=== PATIENT | male | born 1975 | race Caucasian/White ===

== ENCOUNTER 2017-05-04 10:32 | Inpatient (IN) ==
[2017-05-04 11:42] LABS: Basophils # 0.1 K/mcL (0.0-0.2); Basophils % 0.9 %; Eosinophils # 0.2 K/mcL (0.0-0.6); Eosinophils % 3.1 %; Hematocrit 30.4 % (37.5-50.1); Immature Granulocytes % 5.8 % (0-4); Lymphocytes # 1.1 K/mcL (0.6-4.6); Mean Corpuscular HGB Conc 32.9 g/dL (31.6-35.5); Mean Corpuscular Hemoglobin 32.1 pg (28.0-33.3); Mean Corpuscular Volume 97.4 fL (83.0-100.0); Mean Platelet Volume 7.7 fL (9.4-12.4); Monocytes # 1.2 K/mcL (0.0-1.3); Monocytes % 17.4 %; Neutrophils # 3.7 K/mcL (1.6-8.9); Platelet Count 400 K/mcL (140-400); Red Blood Count 3.12 M/mcL (4.19-5.50); Red Cell Distribution Width 12.9 % (11.5-14.5); Segmented Neutrophils % 55.8 %
--- NOTE | 2017-05-04 12:05 | Emergency Department Note ---
Disposition Clinical Impression: Suicidal ideation Cellulitis Qualifiers: Site of cellulitis: extremity Site of cellulitis of extremity: upper extremity Laterality: left Qualified Code(s): L03.114 - Cellulitis of left upper limb Depression Qualifiers: Depression Type: unspecified Qualified Code(s): F32.9 - Major depressive disorder, single episode, unspecified Disposition: Admitted As Inpatient Condition: Good Psych HPI - General Chief Complaint: ED Psychiatric Symptoms Stated Complaint: SI Time Seen by Provider: 05/04/17 11:11 Source: patient Mode of arrival: ambulatory Limitations: no limitations Nursing Notes Reviewed: Yes Vital Signs Reviewed: Yes - History of Present Illness HPI Narrative: Patient is here for psychiatric evaluation. Patient has been experiencing severe depression as well as having thoughts of suicidal ideation. When asked further about this the patient becomes very tearful and is unable to answer further. The patient has also been having visual and auditory hallucinations. Patient had a recent stay at [facility] where his electrolytes were requiring correction. He states that he previously was drinking alcohol and switched to drinking lots of water. These records will be further investigated. This time the patient has very slow speech. Patient comes emotional with certain questions. The patient's family is at bedside including mother as well as aunt. The patient's symptoms have taken a significant decline over the last couple of weeks. Patient does have a previous history of depression. There is a family history of schizophrenia. Patient will likely require further evaluation and management by [facility]. - Related Data Home Medications Medication Instructions Recorded Confirmed Escitalopram [Lexapro] 10 mg PO DAILY 05/04/17 05/04/17 Lisinopril/Hydrochlorothiazide 1 each PO DAILY 05/04/17 05/04/17 [Zestoretic 20-25 mg Tablet] Allergies Allergy/AdvReac Type Severity Reaction Status Date / Time No Known Allergies Allergy Verified 05/04/17 10:41 Constitutional: Reports: weakness. Denies: fever, chills Cardiovascular: Denies: chest pain, palpitations Respiratory: Denies: cough, dyspnea Gastrointestinal: Denies: abdominal pain, nausea, vomiting, diarrhea Musculoskeletal: Denies: back pain, neck pain Integumentary: Reports: lesions (Left arm that was from [facility] IV placement.) Neurological: Denies: headache Psychiatric: Reports: depression, suicidal thoughts, auditory hallucinations, visual hallucinations Endocrine: Reports: fatigue Past Medical History - Past Medical History Medical history: Reports: hypertension Psychiatric history: Reports: anxiety, depression - Social History Smoking Status: Never smoker Alcohol use: Reports: heavy Drug use: Reports: none Physical Exam General: Well appearing, nontoxic, no acute distress Head: Normocephalic Atraumatic Eyes: PERRL, EOMI ENT: Airway patent, no stridor Neck: supple, no meningismus Chest: Lungs clear to auscultation bilateral Cardiac: Regular rhythm, no murmurs, rubs or gallops Abdomen: soft, nontender, nondistended; no guarding, rebound, or tenderness to percussion Musculoskeletal: Calves symmetric, nontender, no palpable cord Skin: 1 cm diameter erythema to the left antecubital fossa where he states he had previous IV. Bedside ultrasound does not show abscess. Neuro: Alert and Oriented to person, place, and time; No focal deficit, CN 2-12 symmetric and intact - General General appearance: alert Course - Reevaluation(s) Reevaluation #1: Patient has a mild cellulitis to the left arm. Ultrasound was used and there is no underlying abscess. - Consultations Consultation #1: [facility] accepts for further psychiatric evaluation Consultation #2: The patient left the floor before Keflex was ordered for his mild cellulitis. Discussed with the psychiatry team and a scheduled order for Keflex has been placed in the computer. Vital Signs Temperature 98.0 F 05/04/17 10:36 Pulse Rate 115 05/04/17 10:36 Respiratory Rate 19 05/04/17 10:36 Blood Pressure 151/93 05/04/17 10:36 O2 Sat by Pulse Oximetry 100 05/04/17 10:36 Temperature 97.2 F L 05/04/17 17:22 Pulse Rate 87 05/04/17 17:22 Respiratory Rate 16 05/04/17 17:22 Blood Pressure 155/107 05/04/17 17:22 O2 Sat by Pulse Oximetry 100 05/04/17 10:36 Oxygen Delivery Oxygen Delivery Room Air Psych - Lab Data Result diagrams: 05/04/17 09:55 05/04/17 11:33 Lab Results 05/04/17 05/04/17 05/04/17 Range/Units 09:55 11:30 11:32 WBC 6.7 (4.3-11.1) K/mcL RBC 3.12 L (4.19-5.50) M/mcL Hgb 10.0 L (12.9-16.9) g/dL Hct 30.4 L (37.5-50.1) % MCV 97.4 (83.0-100.0) fL MCH 32.1 (28.0-33.3) pg MCHC 32.9 (31.6-35.5) g/dL RDW 12.9 (11.5-14.5) % Plt Count 400 (140-400) K/mcL MPV 7.7 L (9.4-12.4) fL Immature Gran % 5.8 H (0-4) % Seg Neutrophils % 55.8 % Lymphocytes % 17.0 % Monocytes % 17.4 % Eosinophils % 3.1 % Basophils % 0.9 % Neutrophils # 3.7 (1.6-8.9) K/mcL Lymphocytes # 1.1 (0.6-4.6) K/mcL Monocytes # 1.2 (0.0-1.3) K/mcL Eosinophils # 0.2 (0.0-0.6) K/mcL Basophils # 0.1 (0.0-0.2) K/mcL Platelet Estimate Normal (Normal) Sodium (136-145) mEq/L Potassium (3.5-5.1) mEq/L Chloride (98-107) mEq/L Carbon Dioxide (23-29) mEq/L BUN (6-20) mg/dL Creatinine (0.70-1.30) mg/dL Est GFR ( Amer) (> 60) Est GFR (Non-Af Amer) (> 60) BUN/Creatinine Ratio (6-26) Glucose (70-105) mg/dL Calculated Osmolality (280-300) Calcium (8.6-10.3) mg/dL TSH (0.340-5.600) mcIU/mL Urine Color Yellow (Yellow) Urine Clarity Clear (Clear) Urine pH 6.5 (5.0-8.0) pH Units Ur Specific [place] 1.024 (1.010-1.025) Urine Protein Negative (Neg-Trace) mg/dL Urine Glucose (UA) 250 H (Normal) mg/dL Urine Ketones Negative (Negative) mg/dL Urine Blood Negative (Negative) Urine Nitrite Negative (Negative) Urine Bilirubin Negative (Negative) Urine Urobilinogen Normal (Normal) mg/dL Ur Leukocyte Esterase Negative (Negative) Salicylates (15.0-30.0) mg/dL Urine Opiates Screen Negative (Ixyzbf=928) ng/mL Acetaminophen (10-30) mcg/mL Ur Barbiturates Screen Negative (Suajln=808) ng/mL Ur Phencyclidine Scrn Negative (Cutoff=25) ng/mL Ur Amphetamines Screen Negative (Hwwajb=2769) ng/mL U Benzodiazepines Scrn Negative (Giywmi=548) ng/mL Urine Cocaine Screen Negative (Cutoff= 300) ng/mL U Marijuana (THC) Screen Negative (Cutoff = 50) ng/mL Ethyl Alcohol (0-10) mg/dL 05/04/17 Range/Units 11:33 WBC (4.3-11.1) K/mcL RBC (4.19-5.50) M/mcL Hgb (12.9-16.9) g/dL Hct (37.5-50.1) % MCV (83.0-100.0) fL MCH (28.0-33.3) pg MCHC (31.6-35.5) g/dL RDW (11.5-14.5) % Plt Count (140-400) K/mcL MPV (9.4-12.4) fL Immature Gran % (0-4) % Seg Neutrophils % % Lymphocytes % % Monocytes % % Eosinophils % % Basophils % % Neutrophils # (1.6-8.9) K/mcL Lymphocytes # (0.6-4.6) K/mcL Monocytes # (0.0-1.3) K/mcL Eosinophils # (0.0-0.6) K/mcL Basophils # (0.0-0.2) K/mcL Platelet Estimate (Normal) Sodium 133 L (136-145) mEq/L Potassium 3.5 (3.5-5.1) mEq/L Chloride 103 (98-107) mEq/L Carbon Dioxide 22 L (23-29) mEq/L BUN 10 (6-20) mg/dL Creatinine 0.98 (0.70-1.30) mg/dL Est GFR ( Amer) > 60 (> 60) Est GFR (Non-Af Amer) > 60 (> 60) BUN/Creatinine Ratio 10 (6-26) Glucose 95 (70-105) mg/dL Calculated Osmolality 275 L (280-300) Calcium 9.1 (8.6-10.3) mg/dL TSH 1.265 (0.340-5.600) mcIU/mL Urine Color (Yellow) Urine Clarity (Clear) Urine pH (5.0-8.0) pH Units Ur Specific [place] (1.010-1.025) Urine Protein (Neg-Trace) mg/dL Urine Glucose (UA) (Normal) mg/dL Urine Ketones (Negative) mg/dL Urine Blood (Negative) Urine Nitrite (Negative) Urine Bilirubin (Negative) Urine Urobilinogen (Normal) mg/dL Ur Leukocyte Esterase (Negative) Salicylates < 5.0 L (15.0-30.0) mg/dL Urine Opiates Screen (Bcvrjq=266) ng/mL Acetaminophen < 1.0 L (10-30) mcg/mL Ur Barbiturates Screen (Ahfrxy=696) ng/mL Ur Phencyclidine Scrn (Cutoff=25) ng/mL Ur Amphetamines Screen (Vwxbit=4098) ng/mL U Benzodiazepines Scrn (Pwniin=165) ng/mL Urine Cocaine Screen (Cutoff= 300) ng/mL U Marijuana (THC) Screen (Cutoff = 50) ng/mL Ethyl Alcohol < 10 (0-10) mg/dL Psychiatric Medical Clearance - Medical Clearance Checklist Medical History: No Social History Section defined Current Vitals: Last Vital Signs Temp 97.2 F L 05/04/17 17:22 Pulse 87 05/04/17 17:22 Resp 16 05/04/17 17:22 BP 155/107 05/04/17 17:22 Pulse Ox 100 05/04/17 10:36 Psychiatric Lab Panel: Drug Levels and Toxicity 05/04/17 05/04/17 11:32 11:33 Urine Opiates Screen Negative Acetaminophen < 1.0 L Ur Barbiturates Screen Negative Ur Phencyclidine Scrn Negative Ur Amphetamines Screen Negative U Benzodiazepines Scrn Negative Urine Cocaine Screen Negative U Marijuana (THC) Screen Negative Ethyl Alcohol < 10 Abnormal Labs: Abnormal lab results RBC 3.12 M/mcL (4.19-5.50) L 05/04/17 09:55 Hgb 10.0 g/dL (12.9-16.9) L 05/04/17 09:55 Hct 30.4 % (37.5-50.1) L 05/04/17 09:55 MPV 7.7 fL (9.4-12.4) L 05/04/17 09:55 Immature Gran % 5.8 % (0-4) H 05/04/17 09:55 Sodium 133 mEq/L (136-145) L 05/04/17 11:33 Carbon Dioxide 22 mEq/L (23-29) L 05/04/17 11:33 Calculated Osmolality 275 (280-300) L 05/04/17 11:33 Urine Glucose (UA) 250 mg/dL (Normal) H 05/04/17 11:30 Salicylates < 5.0 mg/dL (15.0-30.0) L 05/04/17 11:33 Acetaminophen < 1.0 mcg/mL (10-30) L 05/04/17 11:33 Statement of Medical Clearance: I have evaluated the patient, reviewed diagnostic information, and certify that the patient's medical condition is sufficiently stable that transfer to the psychiatric unit does not pose a significant risk of deterioration.
[2017-05-04 12:06] LABS: Acetaminophen < 1.0 mcg/mL (10-30); BUN/Creatinine Ratio 10 (6-26); Blood Urea Nitrogen 10 mg/dL (6-20); Calcium 9.1 mg/dL (8.6-10.3); Carbon Dioxide 22 mEq/L (23-29); Chloride 103 mEq/L (98-107); Ethanol < 10 mg/dL (0-10); Glucose 95 mg/dL (70-105); Osmolality,Calculated 275 (280-300); Potassium 3.5 mEq/L (3.5-5.1); Salicylate < 5.0 mg/dL (15.0-30.0); Sodium 133 mEq/L (136-145); eGFR For African Americans > 60 (> 60); eGFR For Non-African Americans > 60 (> 60)
--- NOTE | 2017-05-04 12:14 | Emergency Department Note ---
START Narrative - START START: I examined this patient and my medical decision-making was reviewed with the Resident Physician. I agree with the documented findings, disposition and treatment plan as described except to the extent set forth below. 41-year-old male presents emergency room for problems with depression and suicidal thoughts, emotional distress, problems with his schizophrenia. Patient was recently admitted to [facility] and had similar problems. He also had some alcohol problems at that time. Patient will need to be worked up from a psychological standpoint anticipated admission here for placement someplace for his schizophrenia. He has having some auditory and visual hallucinations. Patient is tearful on exam. Has problems answering questions.
[2017-05-04 12:19] LABS: Platelet Estimate Normal (Normal)
[2017-05-04 12:22] LABS: Thyroid Stimulating Hormone 1.265 mcIU/mL (0.340-5.600)
[2017-05-04 12:30] LABS: Amphetamine Screen,Urine Negative ng/mL (Cutoff=1000); Barbiturate Screen,Urine Negative ng/mL (Cutoff=200); Benzodiazepines Screen,Urine Negative ng/mL (Cutoff=200); Cannabinoid Screen,Urine Negative ng/mL (Cutoff = 50); Cocaine Screen,Urine Negative ng/mL (Cutoff= 300); Opiate Screen,Urine Negative ng/mL (Cutoff=300); Phencyclidine Screen,Urine Negative ng/mL (Cutoff=25)
[2017-05-04 13:52] LABS: Clarity,Urine Clear (Clear); Color,Urine Yellow (Yellow)
[2017-05-04 13:53] LABS: Bilirubin,Urine Negative (Negative); Blood,Urine Negative (Negative); Glucose,Urine (UA) 250 mg/dL (Normal); Ketones,Urine Negative (Negative); Leukocyte Esterase,Urine Negative (Negative); Nitrite,Urine Negative (Negative); PH,Urine 6.5 pH Units (5.0-8.0); Protein,Urine Negative (Neg-Trace); Specific Gravity,Urine 1.024 (1.010-1.025); Urobilinogen,Urine Normal (Normal)
[2017-05-04] MEDS ORDERED: *HR* LORazepam 2 MG/ML VIAL IM PRN (17:18)
[2017-05-04] MEDS ORDERED: *HR* LORazepam 1 MG TABLET PO PRN (17:18)
[2017-05-04] MEDS ORDERED: Haloperidol Lactate 5 MG/ML VIAL IM PRN (17:18)
[2017-05-04] MEDS ORDERED: Mag Hydrox/Al Hydrox/Simeth 30 ML UDC PO PRN (17:18)
[2017-05-04] MEDS ORDERED: Ibuprofen 400 MG TABLET PO PRN (17:18)
[2017-05-04] MEDS ORDERED: MOM Conc 10 ML UD.LIQ PO PRN (17:18)
[2017-05-04] MEDS: traZODone 50 MG TABLET PO PRN (20:27)
[2017-05-04] MEDS: cephALEXin 500 MG CAPSULE PO SCH (20:27)
[2017-05-04] MEDS: hydrOXYzine pamoate 25 MG CAPSULE PO PRN (20:27)
[2017-05-05] MEDS: cephALEXin 500 MG CAPSULE PO SCH ×4 (08:38→20:52)
[2017-05-05] MEDS: Nicotine 21 MG PATCH.TD24 TD SCH (11:36)
--- NOTE | 2017-05-05 11:40 | Psychiatry History & Physical ---
Date of Encounter: 05/05/17 Time of Encounter: 11:00 History of Present Illness Patient Stated Chief Complaint: "This is the next step." Medicare Admission Attestation: For traditional Medicare patients the provided hospital inpatient services are reasonable and necessary and in the case of services not specified as inpatient -only under 42 CFR 419.22 (n), that they are appropriately provided as inpatient services in accordance 42 CFR 412.3. For Critical Access Hospital the patient may reasonably be expected to be discharged or transferred to a hospital within 96 hours after admission to the Critical Access Hospital. Admitted From: Emergency Dept History of Present Illness: Mr. Tamez is a 41 year old male with a history of alcohol water intoxication and recent discharge from outside facility for the water intoxication who presented to the emergency room with increasing depression. He reported recent auditory and visual hallucinations but these were apparently related to the water intoxication. On arrival to the hospital patient reports severe depression. He denied suicidal ideation initially but family reports that patient has been reporting suicidal thoughts. Today the patient's affect is very flat and his speech is monotone. When asked what brought him to the hospital he states "this is the next step." He does want help with his drinking and help with his depression. He does not remember what treatment he received at [facility]. He denies recent illicit drug use. He reports that he has been off alcohol for about 2 weeks. His timelines have not necessarily added up with his story, he may have had alcohol use more recently than 2 weeks. He denies symptoms of withdrawal right now. He denies a history of withdrawal seizures or delirium tremens. He denies suicidal ideations today but reports feelings of anhedonia and hopelessness at times. He reported to a staff member earlier that he thought the TV was "twitching." He does have some delayed speech which may be thought blocking or could be related to altered mental status from recent water intoxication. Past Med Surg Social Fam HX - Past Medical History Medical history: hypertension - Past Psychiatric History Psychiatric history: Reports: depression, other (Alcohol dependence) Past psychiatric history details: Family patient admitted admission many years ago. Family psychiatric history: No Family History of Suicide: None - Social History Smoking Status: Never smoker Smokeless Tobacco Status: No Alcohol use: heavy Drug use: none Medications & Allergies Escitalopram [Lexapro] 10 mg PO DAILY 05/04/17 [History] Lisinopril/Hydrochlorothiazide [Zestoretic 20-25 mg Tablet] 1 each PO DAILY [History] 3 Allergy/AdvReac Type Severity Reaction Status Date / Time No Known Allergies Allergy Verified 05/04/17 10:41 Review of Systems ROS limited: due to patient condition Psychiatric: Reports: depression, anxiety, abnormal sleep pattern, suicidal ideation, auditory hallucinations, visual hallucinations, difficulty concentrating, hopelessness, irritability Mental Status Exam Patient orientation: Yes Person, Yes Place Level of alertness: Alert Patient appearance: Appropriate Behavior: calm, withdrawn Psychomotor activity: Slowed Eye contact: Intense Contact Mood description: Depressed Affect description: flat Speech pattern: Slowed, Monotone Speech volume: Normal Thought process: [place], Slowed Thinking Thought content: Yes Suicidal ideation Perceptual disturbances: No Auditory hallucinations, No Visual hallucinations Memory description: Immediate Intact, Recent Impaired Patient reliability: Not Reliable Historian Intelligence estimate: Average Judgment: Limited Insight: Minimal Results - Vital Signs Vital signs: Temp Pulse Resp BP Pulse Ox 97.9 F 98 16 123/77 100 05/05/17 09:00 05/05/17 11:37 05/05/17 11:37 05/05/17 11:37 05/04/17 10:36 - Labs Labs: Laboratory Last Values WBC 6.7 K/mcL (4.3-11.1) 05/04/17 09:55 RBC 3.12 M/mcL (4.19-5.50) L 05/04/17 09:55 Hgb 10.0 g/dL (12.9-16.9) L 05/04/17 09:55 Hct 30.4 % (37.5-50.1) L 05/04/17 09:55 MCV 97.4 fL (83.0-100.0) 05/04/17 09:55 MCH 32.1 pg (28.0-33.3) 05/04/17 09:55 MCHC 32.9 g/dL (31.6-35.5) 05/04/17 09:55 RDW 12.9 % (11.5-14.5) 05/04/17 09:55 Plt Count 400 K/mcL (140-400) 05/04/17 09:55 MPV 7.7 fL (9.4-12.4) L 05/04/17 09:55 Immature Gran % 5.8 % (0-4) H 05/04/17 09:55 Seg Neutrophils % 55.8 % 05/04/17 09:55 Lymphocytes % 17.0 % 05/04/17 09:55 Monocytes % 17.4 % 05/04/17 09:55 Eosinophils % 3.1 % 05/04/17 09:55 Basophils % 0.9 % 05/04/17 09:55 Neutrophils # 3.7 K/mcL (1.6-8.9) 05/04/17 09:55 Lymphocytes # 1.1 K/mcL (0.6-4.6) 05/04/17 09:55 Monocytes # 1.2 K/mcL (0.0-1.3) 05/04/17 09:55 Eosinophils # 0.2 K/mcL (0.0-0.6) 05/04/17 09:55 Basophils # 0.1 K/mcL (0.0-0.2) 05/04/17 09:55 Platelet Estimate Normal (Normal) 05/04/17 09:55 Sodium 133 mEq/L (136-145) L 05/04/17 11:33 Potassium 3.5 mEq/L (3.5-5.1) 05/04/17 11:33 Chloride 103 mEq/L (98-107) 05/04/17 11:33 Carbon Dioxide 22 mEq/L (23-29) L 05/04/17 11:33 BUN 10 mg/dL (6-20) 05/04/17 11:33 Creatinine 0.98 mg/dL (0.70-1.30) 05/04/17 11:33 Est GFR ( Amer) > 60 (> 60) 05/04/17 11:33 Est GFR (Non-Af Amer) > 60 (> 60) 05/04/17 11:33 BUN/Creatinine Ratio 10 (6-26) 05/04/17 11:33 Glucose 95 mg/dL (70-105) 05/04/17 11:33 Calculated Osmolality 275 (280-300) L 05/04/17 11:33 Calcium 9.1 mg/dL (8.6-10.3) 05/04/17 11:33 TSH 1.265 mcIU/mL (0.340-5.600) 05/04/17 11:33 Urine Color Yellow (Yellow) 05/04/17 11:30 Urine Clarity Clear (Clear) 05/04/17 11:30 Urine pH 6.5 pH Units (5.0-8.0) 05/04/17 11:30 Ur Specific [place] 1.024 (1.010-1.025) 05/04/17 11:30 Urine Protein Negative mg/dL (Neg-Trace) 05/04/17 11:30 Urine Glucose (UA) 250 mg/dL (Normal) H 05/04/17 11:30 Urine Ketones Negative mg/dL (Negative) 05/04/17 11:30 Urine Blood Negative (Negative) 05/04/17 11:30 Urine Nitrite Negative (Negative) 05/04/17 11:30 Urine Bilirubin Negative (Negative) 05/04/17 11:30 Urine Urobilinogen Normal mg/dL (Normal) 05/04/17 11:30 Ur Leukocyte Esterase Negative (Negative) 05/04/17 11:30 Salicylates < 5.0 mg/dL (15.0-30.0) L 05/04/17 11:33 Urine Opiates Screen Negative ng/mL (Hsfeqp=082) 05/04/17 11:32 Acetaminophen < 1.0 mcg/mL (10-30) L 05/04/17 11:33 Ur Barbiturates Screen Negative ng/mL (Lrhuap=243) 05/04/17 11:32 Ur Phencyclidine Scrn Negative ng/mL (Cutoff=25) 05/04/17 11:32 Ur Amphetamines Screen Negative ng/mL (Nlngln=1353) 05/04/17 11:32 U Benzodiazepines Scrn Negative ng/mL (Gohdct=609) 05/04/17 11:32 Urine Cocaine Screen Negative ng/mL (Cutoff= 300) 05/04/17 11:32 U Marijuana (THC) Screen Negative ng/mL (Cutoff = 50) 05/04/17 11:32 Ethyl Alcohol < 10 mg/dL (0-10) 05/04/17 11:33 Assessment and Plan (1) Depression Current visit: Yes Status: Acute Plan: Admit inpatient for safety and stabilization, Close observation, Suicide Precautions per unit protocol, Encourage participation in unit milieu, Group Therapy, Monitor sleep, Monitor appetite Additional Plan: Her family, patient has been voicing suicidal ideations. He denies this now but is clearly having some cognitive slowing. We will continue Lexapro for now. Consider an increase but given that Lexapro can increase hyponatremia we will have to monitor sodium level. Encourage positive coping strategies and monitor behavior closely. Trazodone as needed for sleep. Monitor for side effects. Risks, benefits, side effects, alternatives discussed w/pt: Yes Patient agreeable to treatment: Yes Plans for Post Hospital Care: Home Estimated Length of Stay (Days): 3 Qualifiers: Depression Type: major depressive disorder Major depression recurrence: recurrent Active/Remission status: currently active Major depression episode severity: severe Psychotic features: with psychotic features Qualified Code(s): F33.3 - Major depressive disorder, recurrent, severe with psychotic symptoms (2) Alcohol dependence Current visit: Yes Status: Acute Plan: Admit inpatient for safety and stabilization, Close observation, Suicide Precautions per unit protocol, Encourage participation in unit milieu, Group Therapy, Monitor sleep, Monitor appetite Additional Plan: We will monitor vitals closely. Follow-up on records from outside facility regarding patient's alcohol intake recently as well as treatment received there. Patient's odd affect and difficulty with recent history could be secondary to alcohol withdrawal symptoms although vitals have been stable. We will continue to monitor vitals and any symptoms of alcohol withdrawal very closely. Risks, benefits, side effects, alternatives discussed w/pt: Yes Patient agreeable to treatment: Yes Plans for Post Hospital Care: Home Estimated Length of Stay (Days): 3 Qualifiers: Substance use status: in withdrawal Complication of substance-induced condition: uncomplicated Qualified Code(s): F10.230 - Alcohol dependence with withdrawal, uncomplicated (3) Altered mental status Current visit: Yes Status: Acute Plan: Admit inpatient for safety and stabilization, Close observation Additional Plan: Patient recently treated for water intoxication. This is not patient's baseline and we will contact family to discuss patient's normal level of functioning. We will also review records from outside facility regarding mental status on discharge. Risks, benefits, side effects, alternatives discussed w/pt: Yes Patient agreeable to treatment: Yes Estimated Length of Stay (Days): 3 Qualifiers: Altered mental status type: unspecified Qualified Code(s): R41.82 - Altered mental status, unspecified
[2017-05-05] MEDS: traZODone 50 MG TABLET PO PRN (20:52)
[2017-05-05] MEDS: hydrOXYzine pamoate 25 MG CAPSULE PO PRN (20:52)
[2017-05-06] MEDS: cephALEXin 500 MG CAPSULE PO SCH ×4 (09:18→20:39)
[2017-05-06] MEDS: Nicotine 21 MG PATCH.TD24 TD SCH (09:20)
--- NOTE | 2017-05-06 10:48 | Psychiatry Progress Note ---
Date of Encounter: 05/06/17 Time of Encounter: 09:15 Subjective Interval history: Wil is seen today for follow-up. He is slightly more responsive than yesterday but his affect remains flat at times. He reports he is feeling much better. Family visited yesterday and patient states that they feel he is also doing better. He denies suicidal ideations today. We reviewed records from previous hospitalization and patient did have hyponatremia secondary to water intoxication. All of his imaging there was negative. Review of Systems Psychiatric: Reports: depression, anxiety, difficulty concentrating, hopelessness, irritability Objective: Exam Patient orientation: Yes Person, Yes Place Level of alertness: Alert Behavior: calm Psychomotor activity: Slowed Eye contact: Intense Contact Mood description: Euthymic/stable Affect description: flat Speech pattern: Slowed, Monotone Speech volume: Normal Thought process: [place], Slowed Thinking Thought content: No Suicidal ideation, No Homicidal ideation Perceptual disturbances: No Auditory hallucinations, No Visual hallucinations Judgment: Limited Insight: Minimal Results - Vital Signs Vital Signs: Temp Pulse Resp BP Pulse Ox 97.6 F 103 16 114/80 100 05/06/17 09:00 05/06/17 09:00 05/06/17 09:00 05/06/17 09:00 05/04/17 10:36 Assessment and Plan (1) Depression Current visit: Yes Status: Acute Plan: Continue hospitalization, Close observation, Suicide Precautions per unit protocol, Encourage participation in unit milieu, Group Therapy, Monitor sleep, Monitor appetite Additional Plan: We will increase Lexapro slightly to help with depression symptoms. Encourage patient to attend and unit activities. Risks, benefits, side effects, alternatives discussed w/pt: Yes Patient agreeable to treatment: Yes Qualifiers: Depression Type: major depressive disorder Major depression recurrence: recurrent Active/Remission status: currently active Major depression episode severity: severe Psychotic features: with psychotic features Qualified Code(s): F33.3 - Major depressive disorder, recurrent, severe with psychotic symptoms (2) Alcohol dependence Current visit: Yes Status: Acute Additional Plan: Vitals have remained stable. Continue to monitor. Risks, benefits, side effects, alternatives discussed w/pt: Yes Patient agreeable to treatment: Yes Qualifiers: Substance use status: in withdrawal Complication of substance-induced condition: uncomplicated Qualified Code(s): F10.230 - Alcohol dependence with withdrawal, uncomplicated (3) Altered mental status Current visit: Yes Status: Acute Additional Plan: Resolving. Reviewed records from previous hospitalization. Coordinate with family to determine when patient has returned to baseline. Risks, benefits, side effects, alternatives discussed w/pt: Yes Patient agreeable to treatment: Yes Qualifiers: Altered mental status type: unspecified Qualified Code(s): R41.82 - Altered mental status, unspecified Consult Discharge Plan - Plan Referrals: NONE,PCP [Primary Care Provider] -
[2017-05-06] MEDS: hydrOXYzine pamoate 25 MG CAPSULE PO PRN ×2 (16:38→19:44)
[2017-05-06] MEDS: traZODone 50 MG TABLET PO PRN (20:39)
[2017-05-07] MEDS: cephALEXin 500 MG CAPSULE PO SCH ×2 (08:36→12:33)
[2017-05-07] MEDS: Nicotine 21 MG PATCH.TD24 TD SCH (09:01)
[2017-05-07 09:21] VITALS: BP 117/90
--- NOTE | 2017-05-07 11:46 | Discharge Summary ---
Date of Encounter: 05/07/17 Time of Encounter: 10:00 Diagnosis - Discharge Diagnosis (1) Depression Priority: Primary Status: Acute Qualifiers: Depression Type: major depressive disorder Major depression recurrence: recurrent Active/Remission status: currently active Major depression episode severity: severe Psychotic features: with psychotic features Qualified Code(s): F33.3 - Major depressive disorder, recurrent, severe with psychotic symptoms (2) Alcohol dependence Priority: Secondary Status: Acute Qualifiers: Substance use status: in withdrawal Complication of substance-induced condition: uncomplicated Qualified Code(s): F10.230 - Alcohol dependence with withdrawal, uncomplicated (3) Altered mental status Status: Resolved Qualifiers: Altered mental status type: unspecified Qualified Code(s): R41.82 - Altered mental status, unspecified Medications - Discharge Medications Escitalopram [Lexapro] 10 mg PO DAILY 05/04/17 [History] Lisinopril/Hydrochlorothiazide [Zestoretic 20-25 mg Tablet] 1 each PO DAILY [History] cephALEXin [Keflex] 500 mg PO QID #0 capsule 05/07/17 [Rx] hydrOXYzine pamoate [HydrOXYzine Pamoate] 25 mg PO TID PRN #90 capsule 05/07/17 [Rx] traZODone [TraZODone] 50 mg PO HS PRN #30 tablet 05/07/17 [Rx] 3 Allergy/AdvReac Type Severity Reaction Status Date / Time No Known Allergies Allergy Verified 05/04/17 10:41 Provider Date of admission: 05/04/17 16:55 Primary care physician: PCP NONE Discharging clinician: Velvet Ardon Assessment and Plan - Patient/Caregiver Discharge Instructions Activity: resume usual activities as tolerated Diet: regular diet - Follow up Plan Follow up with: [facility] [Outside] - 05/18/17 10:00 am (The above appointment is with Dr. Ronn Jang for primary healthcare services. Please bring your insurance card and photo ID to this appointment.) [facility] [Outside] - 05/12/17 9:45 am (The above appointment is with Jose Gilman for to open your case as a client and for ongoing outpatient mental health and substance abuse counseling services. You will also see Nannette Brennan for outpatient psychiatric assessment and medication management services on 06/03/2017 at 10:00 AM. You must keep your appointment with Jose Gilman in order to be seen by Nannette Brennan. Please bring your insurance card and photo ID to your first appointment.) Functional capacity at discharge: independent ambulation Overall status at discharge: Stable Disposition: Home, Self-Care Hospital Course Hospital course: Mr. Tamez is a 41 year old male with a history of depression, alcohol dependence, recent alcohol withdrawal and alcohol intoxication who presented to the hospital with depression and reported suicidal ideations. Patient was admitted to for psychiatric stabilization. He was incorporated into the therapeutic milieu and offer group and individual as well as recreational therapy. He was also offered psychoeducational materials and supportive therapy. Initially on presentation patient was very monotone and flat and acting somewhat odd reporting that the TV screen was "twitching." Patient was started on his Lexapro and given trazodone for sleep. Patient's sleep improved while on the unit. Throughout the course of the hospital stay patient has become more range. He is cooperative and pleasant with peers and staff. He denied suicidal ideations. He feels his mood has improved significantly. He is willing to continue with his outpatient treatment for substance abuse and mental health issues. At the time of discharge he denied suicidal or homicidal ideation, intent, or plan. He did not appear to be responding to internal stimuli and was able to verbalize his needs with staff. He is discharged in stable condition. - Time Spent with Patient Total time spent providing and/or coordinating discharge services: Less than 30 minutes Quality - Multiple Antipsychotics Patient discharged on 2 or more antipsychotic medications: No Procedures - Procedures Procedures: Medication Management, Crisis Stabilization, Supportive Therapy, Group Therapy, Psychoeducational Therapy Mental Status Exam - Mental Status Exam Patient orientation: Yes Person, Yes Time, Yes Place Level of alertness: Alert Patient appearance: Appropriate, Well Groomed Behavior: calm, cooperative Psychomotor activity: Normal Eye contact: Maintains Eye Contact Mood description: Euthymic/stable Affect description: constricted Speech pattern: Normal rate, Normal rhythm, Normal tone Speech Volume: Normal Thought process: Intact, Logical, Goal Oriented Thought Content: Yes Intact, No Suicidal ideation, No Homicidal ideation Perceptual Disturbances: No Auditory hallucinations, No Visual hallucinations Judgment: Limited Insight: Partial
== END 2017-05-07 14:30 | disposition home or self-care (01) | DRG 885 ==
LOC: EMEROO 10:32 → 1ANU 16:55
PROVIDERS: ADMIT Student in an Organized Health Care Education/Training Program; ATTEND Student in an Organized Health Care Education/Training Program

== ENCOUNTER 2019-01-22 23:06 | Observation (INO) ==
[2019-01-22] MEDS ORDERED: 0.9 % Sodium Chloride 1,000 ML IVC ONE (23:44)
[2019-01-22] MEDS ORDERED: MVI, adult with vitamin K 10 ML, Folic Acid 1 MG, Thiamine (B-1) 100 MG in 0.9 % Sodi... IVC ONE (23:44)
[2019-01-22] MEDS ORDERED: Folic Acid 1 MG in 0.9 % Sodium Chloride 50 ML IVPB ONE (23:44)
[2019-01-22] MEDS ORDERED: *HR* Dextrose 50 % in Water (Syg) 50 ML SYRINGE IVP ONE (23:44)
[2019-01-22] MEDS ORDERED: Thiamine (B-1) 100 MG in 0.9 % Sodium Chloride 50 ML IVPB ONE (23:44)
[2019-01-22] MEDS ORDERED: *HR* LORazepam 2 MG/ML VIAL IVP ONE (23:44)
[2019-01-23 00:22] LABS: Basophils % 0.3 %; Eosinophils # 0.1 K/mcL (0.0-0.6); Eosinophils % 0.7 %; Hematocrit 32.1 % (37.5-50.1); Lymphocytes # 0.9 K/mcL (0.6-4.6); Lymphocytes % 8.5 %; Mean Corpuscular HGB Conc 34.3 g/dL (31.6-35.5); Mean Corpuscular Volume 96.4 fL (83.0-100.0); Mean Platelet Volume 8.2 fL (9.4-12.4); Monocytes # 0.8 K/mcL (0.0-1.3); Monocytes % 8.2 %; Neutrophils # 8.1 K/mcL (1.6-8.9); Platelet Count 230 K/mcL (140-400); Red Blood Count 3.33 M/mcL (4.19-5.50); Red Cell Distribution Width 11.8 % (11.5-14.5); Segmented Neutrophils % 80.3 %; White Blood Count 10.1 K/mcL (4.3-11.1)
[2019-01-23 00:27] LABS: INR 0.9; Prothrombin Time 10.1 Seconds (9.4-12.1)
[2019-01-23 00:28] LABS: Bilirubin,Urine Negative (Negative); Blood,Urine Negative (Negative); Clarity,Urine Clear (Clear); Color,Urine Yellow (Yellow); Glucose,Urine (UA) 100 mg/dL (Normal); Ketones,Urine Negative (Negative); Leukocyte Esterase,Urine Negative (Negative); Nitrite,Urine Negative (Negative); Protein,Urine Negative (Neg-Trace); Specific Gravity,Urine 1.019 (1.010-1.025); Urobilinogen,Urine Normal (Normal)
[2019-01-23 00:31] LABS: Alanine Aminotransferase 164 Units/L (7-52); Albumin 4.2 g/dL (3.5-5.7); Albumin/Globulin Ratio 2.5 (1.1-2.2); Alkaline Phosphatase 44 Units/L (34-104); Aspartate Amino Transferase 80 Units/L (13-39); BUN/Creatinine Ratio 11 (6-26); Bilirubin,Total 0.4 mg/dL (0.3-1.0); Blood Urea Nitrogen 10 mg/dL (6-20); Calcium 9.1 mg/dL (8.6-10.3); Carbon Dioxide 22 mEq/L (23-29); Chloride 97 mEq/L (98-107); Ethanol < 10 mg/dL (Less than 10); Globulin 1.7 g/dL (2.4-3.5); Glucose 124 mg/dL (70-105); Lipase 28 Units/L (11-82); Magnesium 1.4 mg/dL (1.6-2.6); Osmolality,Calculated 262 (280-300); Phosphorous 3.1 mg/dL (2.7-4.5); Potassium 3.9 mEq/L (3.5-5.1); Sodium 126 mEq/L (136-145); Total Protein 5.9 g/dL (6.4-8.9); eGFR For African Americans > 60 (> 60); eGFR For Non-African Americans > 60 (> 60)
[2019-01-23] MEDS ORDERED: *HR* LORazepam 2 MG/ML VIAL IVP PRN ×3 (02:21)
[2019-01-23 04:03] LABS: Amphetamine Screen,Urine Negative ng/mL (Cutoff=1000); Barbiturate Screen,Urine Negative ng/mL (Cutoff=200); Benzodiazepines Screen,Urine Negative ng/mL (Cutoff=200); Cannabinoid Screen,Urine Negative ng/mL (Cutoff = 50); Cocaine Screen,Urine Negative ng/mL (Cutoff= 300); Opiate Screen,Urine Negative ng/mL (Cutoff=300); Phencyclidine Screen,Urine Negative ng/mL (Cutoff=25)
[2019-01-23] MEDS ORDERED: traZODone 50 MG TABLET PO PRN (05:39)
[2019-01-23 06:08] LABS: Hematocrit 28.5 % (37.5-50.1); Mean Corpuscular HGB Conc 35.1 g/dL (31.6-35.5); Mean Corpuscular Hemoglobin 33.7 pg (28.0-33.3); Mean Platelet Volume 8.2 fL (9.4-12.4); Platelet Count 189 K/mcL (140-400); Red Blood Count 2.97 M/mcL (4.19-5.50); Red Cell Distribution Width 11.9 % (11.5-14.5); White Blood Count 5.9 K/mcL (4.3-11.1)
[2019-01-23 06:29] LABS: BUN/Creatinine Ratio 9 (6-26); Blood Urea Nitrogen 7 mg/dL (6-20); Calcium 8.4 mg/dL (8.6-10.3); Carbon Dioxide 23 mEq/L (23-29); Chloride 99 mEq/L (98-107); Glucose 112 mg/dL (70-105); Osmolality,Calculated 267 (280-300); Potassium 3.8 mEq/L (3.5-5.1); Sodium 129 mEq/L (136-145); eGFR For African Americans > 60 (> 60); eGFR For Non-African Americans > 60 (> 60)
[2019-01-23 08:48] LABS: Albumin/Globulin Ratio 1.9 (1.1-2.2); Bilirubin,Direct 0.1 mg/dL (0.0-0.2); Bilirubin,Indirect 0.3 mg/dL (0.0-1.2); Bilirubin,Total 0.4 mg/dL (0.3-1.0); Globulin 2.1 g/dL (2.4-3.5); Total Protein 6.1 g/dL (6.4-8.9)
[2019-01-23] MEDS: Vitamin B Complex/Vit C/Vit E 1 EACH TABLET PO SCH (08:52)
[2019-01-23] MEDS: Folic Acid 1 MG TABLET PO SCH (08:52)
[2019-01-23] MEDS ORDERED: 0.9 % Sodium Chloride 1,000 ML IVC SCH (13:00)
[2019-01-24 05:09] LABS: Hematocrit 33.8 % (37.5-50.1); Mean Corpuscular HGB Conc 34.9 g/dL (31.6-35.5); Mean Corpuscular Volume 97.4 fL (83.0-100.0); Platelet Count 207 K/mcL (140-400); Red Blood Count 3.47 M/mcL (4.19-5.50); Red Cell Distribution Width 11.8 % (11.5-14.5); White Blood Count 6.6 K/mcL (4.3-11.1)
[2019-01-24 05:15] LABS: Hemoglobin 11.8 g/dL (12.9-16.9)
[2019-01-24 05:28] LABS: BUN/Creatinine Ratio 10 (6-26); Blood Urea Nitrogen 8 mg/dL (6-20); Calcium 9.1 mg/dL (8.6-10.3); Carbon Dioxide 25 mEq/L (23-29); Chloride 102 mEq/L (98-107); Glucose 110 mg/dL (70-105); Osmolality,Calculated 273 (280-300); Potassium 4.2 mEq/L (3.5-5.1); Sodium 132 mEq/L (136-145); eGFR For African Americans > 60 (> 60); eGFR For Non-African Americans > 60 (> 60)
[2019-01-24 07:47] VITALS: BP 152/98
[2019-01-24] MEDS: Folic Acid 1 MG TABLET PO SCH (07:52)
[2019-01-24] MEDS: Vitamin B Complex/Vit C/Vit E 1 EACH TABLET PO SCH (07:52)
== END 2019-01-24 12:42 | disposition home or self-care (01) ==
LOC: EMEROOARM 23:06 → 2ANU 23:06 → SUATTDRO 01-23 01:21 → 2ANU 01-23 02:12
PROVIDERS: ADMIT Internal Medicine; ATTEND Family Medicine

== ENCOUNTER 2019-05-12 11:20 | Observation (INO) ==
[2019-05-12] MEDS ORDERED: 0.9 % Sodium Chloride 1,000 ML IVC ONE (11:42)
[2019-05-12] MEDS ORDERED: Ondansetron 4 MG/2 ML VIAL IVP ONE ×2 (11:42→14:33)
[2019-05-12] MEDS ORDERED: *HR* LORazepam 2 MG/ML VIAL IVP ONE ×3 (11:45→14:32)
[2019-05-12 12:10] LABS: Basophils % 0.3 %; Eosinophils # 0.1 K/mcL (0.0-0.6); Eosinophils % 0.9 %; Hematocrit 39.5 % (37.5-50.1); Hemoglobin 14.2 g/dL (12.9-16.9); Immature Granulocytes % 0.3 % (0-4); Lymphocytes # 2.1 K/mcL (0.6-4.6); Lymphocytes % 29.8 %; Mean Corpuscular HGB Conc 35.9 g/dL (31.6-35.5); Mean Corpuscular Hemoglobin 31.4 pg (28.0-33.3); Mean Corpuscular Volume 87.4 fL (83.0-100.0); Mean Platelet Volume 8.1 fL (9.4-12.4); Monocytes # 0.6 K/mcL (0.0-1.3); Neutrophils # 4.2 K/mcL (1.6-8.9); Platelet Count 255 K/mcL (140-400); Red Blood Count 4.52 M/mcL (4.19-5.50); Red Cell Distribution Width 12.2 % (11.5-14.5); Segmented Neutrophils % 60.7 %; White Blood Count 6.9 K/mcL (4.3-11.1)
[2019-05-12 12:33] LABS: Alanine Aminotransferase 29 Units/L (7-52); Albumin 4.8 g/dL (3.5-5.7); Albumin/Globulin Ratio 1.9 (1.1-2.2); Alkaline Phosphatase 53 Units/L (34-104); Aspartate Amino Transferase 43 Units/L (13-39); BUN/Creatinine Ratio 7 (6-26); Bilirubin,Direct 0.2 mg/dL (0.0-0.2); Bilirubin,Indirect 1.3 mg/dL (0.0-1.0); Bilirubin,Total 1.5 mg/dL (0.3-1.0); Blood Urea Nitrogen 5 mg/dL (6-20); Calcium 9.1 mg/dL (8.6-10.3); Carbon Dioxide 22 mEq/L (23-29); Chloride 88 mEq/L (98-107); Ethanol 318 mg/dL (Less than 10); Globulin 2.5 g/dL (2.4-3.5); Glucose 100 mg/dL (70-105); Osmolality,Calculated 259 (280-300); Potassium 4.3 mEq/L (3.5-5.1); Sodium 126 mEq/L (136-145); Total Protein 7.3 g/dL (6.4-8.9); eGFR For African Americans > 60 (> 60); eGFR For Non-African Americans > 60 (> 60)
[2019-05-12] MEDS ORDERED: Ondansetron 4 MG/2 ML VIAL IVP PRN (13:29)
[2019-05-12] MEDS ORDERED: Naloxone 0.4 MG/ML INJ IVP PRN (13:29)
[2019-05-12] MEDS ORDERED: *HR* Labetalol 20 MG/4 ML SYRINGE IVP PRN (13:30)
[2019-05-12] MEDS ORDERED: *HR* LORazepam 2 MG/ML VIAL IVP PRN ×3 (13:33)
[2019-05-12] MEDS: 0.9 % Sodium Chloride 1,000 ML IVC SCH (16:32)
[2019-05-12] MEDS: Thiamine (B-1) 100 MG, Folic Acid 1 MG, MVI, adult with vitamin K 10 ML in 0.9 % Sodi... IVPB SCH (18:58)
[2019-05-12 19:56] LABS: Amphetamine Screen,Urine Negative ng/mL (Cutoff=1000); Barbiturate Screen,Urine Negative ng/mL (Cutoff=200); Benzodiazepines Screen,Urine Negative ng/mL (Cutoff=200); Cannabinoid Screen,Urine Negative ng/mL (Cutoff = 50); Cocaine Screen,Urine Negative ng/mL (Cutoff= 300); Opiate Screen,Urine Negative ng/mL (Cutoff=300); Phencyclidine Screen,Urine Negative ng/mL (Cutoff=25)
[2019-05-13] MEDS: 0.9 % Sodium Chloride 1,000 ML IVC SCH (04:02)
[2019-05-13 04:23] LABS: Hematocrit 37.6 % (37.5-50.1); Hemoglobin 13.4 g/dL (12.9-16.9); Mean Corpuscular HGB Conc 35.6 g/dL (31.6-35.5); Mean Corpuscular Hemoglobin 31.5 pg (28.0-33.3); Mean Corpuscular Volume 88.3 fL (83.0-100.0); Mean Platelet Volume 8.3 fL (9.4-12.4); Platelet Count 199 K/mcL (140-400); Red Blood Count 4.26 M/mcL (4.19-5.50); Red Cell Distribution Width 12.4 % (11.5-14.5); White Blood Count 5.2 K/mcL (4.3-11.1)
[2019-05-13 04:48] LABS: Alanine Aminotransferase 25 Units/L (7-52); Albumin 4.1 g/dL (3.5-5.7); Albumin/Globulin Ratio 1.9 (1.1-2.2); Alkaline Phosphatase 46 Units/L (34-104); Aspartate Amino Transferase 39 Units/L (13-39); BUN/Creatinine Ratio 6 (6-26); Bilirubin,Total 2.1 mg/dL (0.3-1.0); Blood Urea Nitrogen 5 mg/dL (6-20); Carbon Dioxide 26 mEq/L (23-29); Chloride 99 mEq/L (98-107); Globulin 2.2 g/dL (2.4-3.5); Glucose 103 mg/dL (70-105); Magnesium 1.9 mg/dL (1.6-2.6); Osmolality,Calculated 280 (280-300); Potassium 4.5 mEq/L (3.5-5.1); Sodium 136 mEq/L (136-145); Total Protein 6.3 g/dL (6.4-8.9); eGFR For African Americans > 60 (> 60); eGFR For Non-African Americans > 60 (> 60)
[2019-05-13] MEDS: FLUoxetine 20 MG CAPSULE PO SCH (09:19)
[2019-05-13] MEDS: Folic Acid 1 MG TABLET PO SCH (09:19)
[2019-05-13] MEDS: Nicotine 14 MG PATCH.TD24 TD SCH (13:28)
[2019-05-13] MEDS: Thiamine (B-1) 100 MG, Folic Acid 1 MG, MVI, adult with vitamin K 10 ML in 0.9 % Sodi... IVPB SCH (16:59)
[2019-05-13] MEDS ORDERED: Melatonin 3 MG TABLET PO ONE (21:29)
[2019-05-14 02:18] LABS: Alanine Aminotransferase 24 Units/L (7-52); Albumin 3.9 g/dL (3.5-5.7); Alkaline Phosphatase 41 Units/L (34-104); Aspartate Amino Transferase 31 Units/L (13-39); BUN/Creatinine Ratio 8 (6-26); Bilirubin,Total 1.7 mg/dL (0.3-1.0); Blood Urea Nitrogen 7 mg/dL (6-20); Carbon Dioxide 25 mEq/L (23-29); Chloride 102 mEq/L (98-107); Glucose 116 mg/dL (70-105); Osmolality,Calculated 277 (280-300); Sodium 134 mEq/L (136-145); Total Protein 5.9 g/dL (6.4-8.9); eGFR For African Americans > 60 (> 60); eGFR For Non-African Americans > 60 (> 60)
[2019-05-14 06:47] VITALS: BP 185/98
[2019-05-14] MEDS ORDERED: amLODIPine 5 MG TABLET PO SCH (09:00)
[2019-05-14] MEDS: Folic Acid 1 MG TABLET PO SCH (09:47)
[2019-05-14] MEDS: Nicotine 14 MG PATCH.TD24 TD SCH (09:47)
[2019-05-14] MEDS: FLUoxetine 20 MG CAPSULE PO SCH (09:47)
== END 2019-05-14 10:06 | disposition home or self-care (01) ==
LOC: 3BNU 11:20 → EMEROOARM 11:20 → SUATTDRO 14:45 → 3BNU 15:57
PROVIDERS: ADMIT Internal Medicine; ATTEND Internal Medicine

== ENCOUNTER 2019-06-18 16:19 | Inpatient (IN) ==
[2019-06-18] MEDS ORDERED: Thiamine (B-1) 200 MG/2 ML VIAL IM ONE (16:56)
[2019-06-18] MEDS ORDERED: 0.9 % Sodium Chloride 1,000 ML IVC ONE (16:56)
[2019-06-18] MEDS ORDERED: Folic Acid 1 MG in 0.9 % Sodium Chloride 50 ML IVPB ONE (16:56)
[2019-06-18 17:32] LABS: Bilirubin,Urine Negative (Negative); Blood,Urine Negative (Negative); Clarity,Urine Clear (Clear); Color,Urine Yellow (Yellow); Glucose,Urine (UA) Normal (Normal); Ketones,Urine 40 mg/dL (Negative); Leukocyte Esterase,Urine Negative (Negative); Nitrite,Urine Negative (Negative); PH,Urine 6.5 pH Units (5.0-8.0); Protein,Urine Negative (Neg-Trace); Urobilinogen,Urine Normal (Normal)
[2019-06-18 17:42] LABS: Amphetamine Screen,Urine Negative ng/mL (Cutoff=1000); Barbiturate Screen,Urine Negative ng/mL (Cutoff=200); Benzodiazepines Screen,Urine Negative ng/mL (Cutoff=200); Cannabinoid Screen,Urine Negative ng/mL (Cutoff = 50); Cocaine Screen,Urine Negative ng/mL (Cutoff= 300); Opiate Screen,Urine Negative ng/mL (Cutoff=300); Phencyclidine Screen,Urine Negative ng/mL (Cutoff=25)
[2019-06-18] MEDS ORDERED: *HR* LORazepam 2 MG/ML VIAL IVP PRN ×3 (18:06)
[2019-06-18 18:16] LABS: Basophils % 0.3 %; Eosinophils % 0.5 %; Hematocrit 39.4 % (37.5-50.1); Hemoglobin 14.1 g/dL (12.9-16.9); Immature Granulocytes % 0.7 % (0-4); Lymphocytes # 2.1 K/mcL (0.6-4.6); Lymphocytes % 34.6 %; Mean Corpuscular HGB Conc 35.8 g/dL (31.6-35.5); Mean Corpuscular Hemoglobin 30.9 pg (28.0-33.3); Mean Corpuscular Volume 86.4 fL (83.0-100.0); Mean Platelet Volume 7.9 fL (9.4-12.4); Monocytes # 0.7 K/mcL (0.0-1.3); Monocytes % 10.9 %; Neutrophils # 3.2 K/mcL (1.6-8.9); Platelet Count 329 K/mcL (140-400); Red Blood Count 4.56 M/mcL (4.19-5.50); Red Cell Distribution Width 12.9 % (11.5-14.5)
[2019-06-18 18:23] LABS: INR 0.9
[2019-06-18 19:09] LABS: Alanine Aminotransferase 264 Units/L (7-52); Albumin/Globulin Ratio 1.9 (1.1-2.2); Alkaline Phosphatase 49 Units/L (34-104); Aspartate Amino Transferase 107 Units/L (13-39); BUN/Creatinine Ratio 9 (6-26); Blood Urea Nitrogen 6 mg/dL (6-20); Calcium 9.4 mg/dL (8.6-10.3); Carbon Dioxide 18 mEq/L (23-29); Chloride 83 mEq/L (98-107); Ethanol 269 mg/dL (Less than 10); Globulin 2.6 g/dL (2.4-3.5); Glucose 77 mg/dL (70-105); Lipase 25 Units/L (11-82); Magnesium 1.8 mg/dL (1.6-2.6); Osmolality,Calculated 240 (280-300); Potassium 4.4 mEq/L (3.5-5.1); Sodium 117 mEq/L (136-145); Total Protein 7.6 g/dL (6.4-8.9); eGFR For African Americans > 60 (> 60); eGFR For Non-African Americans > 60 (> 60)
[2019-06-18 20:12] LABS: BUN/Creatinine Ratio 8 (6-26); Blood Urea Nitrogen 5 mg/dL (6-20); Calcium 8.8 mg/dL (8.6-10.3); Carbon Dioxide 19 mEq/L (23-29); Chloride 87 mEq/L (98-107); Glucose 72 mg/dL (70-105); Osmolality,Calculated 248 (280-300); Potassium 4.5 mEq/L (3.5-5.1); Sodium 121 mEq/L (136-145); eGFR For African Americans > 60 (> 60); eGFR For Non-African Americans > 60 (> 60)
[2019-06-18] MEDS ORDERED: Naloxone 0.4 MG/ML INJ IVP PRN (21:43)
[2019-06-18] MEDS ORDERED: *HR* Labetalol 20 MG/4 ML SYRINGE IVP PRN (21:55)
[2019-06-18] MEDS: Ibuprofen 400 MG TABLET PO PRN (22:55)
[2019-06-19] MEDS: traZODone 50 MG TABLET PO PRN ×2 (00:41→22:22)
[2019-06-19] MEDS: amLODIPine 5 MG TABLET PO SCH ×2 (00:41→08:50)
[2019-06-19 01:29] LABS: Alanine Aminotransferase 234 Units/L (7-52); Albumin 4.7 g/dL (3.5-5.7); Alkaline Phosphatase 46 Units/L (34-104); Aspartate Amino Transferase 102 Units/L (13-39); BUN/Creatinine Ratio 10 (6-26); Bilirubin,Total 1.1 mg/dL (0.3-1.0); Blood Urea Nitrogen 6 mg/dL (6-20); Calcium 9.2 mg/dL (8.6-10.3); Carbon Dioxide 18 mEq/L (23-29); Chloride 89 mEq/L (98-107); Globulin 2.3 g/dL (2.4-3.5); Glucose 63 mg/dL (70-105); Osmolality,Calculated 250 (280-300); Potassium 4.4 mEq/L (3.5-5.1); Sodium 122 mEq/L (136-145); eGFR For African Americans > 60 (> 60); eGFR For Non-African Americans > 60 (> 60)
[2019-06-19] MEDS ORDERED: 0.9 % Sodium Chloride 1,000 ML IVC SCH (04:45)
[2019-06-19] MEDS: *HR* Enoxaparin 40 MG/0.4 ML SYRINGE SQ SCH (05:13)
[2019-06-19 07:41] LABS: Sodium, Urine 16.3 mEq/L
[2019-06-19 08:40] LABS: BUN/Creatinine Ratio 11 (6-26); Blood Urea Nitrogen 9 mg/dL (6-20); Calcium 9.4 mg/dL (8.6-10.3); Carbon Dioxide 20 mEq/L (23-29); Chloride 89 mEq/L (98-107); Glucose 118 mg/dL (70-105); Osmolality,Calculated 260 (280-300); Potassium 4.2 mEq/L (3.5-5.1); Sodium 125 mEq/L (136-145); eGFR For African Americans > 60 (> 60); eGFR For Non-African Americans > 60 (> 60)
[2019-06-19] MEDS: Folic Acid 1 MG TABLET PO SCH (08:51)
[2019-06-19] MEDS: FLUoxetine 20 MG CAPSULE PO SCH (08:51)
[2019-06-19] MEDS: Thiamine (B-1) 100 MG TABLET PO SCH (08:51)
[2019-06-19] MEDS: Ibuprofen 400 MG TABLET PO PRN ×2 (09:24→20:02)
[2019-06-19 13:44] LABS: BUN/Creatinine Ratio 15 (6-26); Blood Urea Nitrogen 14 mg/dL (6-20); Calcium 9.3 mg/dL (8.6-10.3); Carbon Dioxide 23 mEq/L (23-29); Chloride 93 mEq/L (98-107); Glucose 150 mg/dL (70-105); Osmolality,Calculated 261 (280-300); Potassium 4.4 mEq/L (3.5-5.1); Sodium 124 mEq/L (136-145); eGFR For African Americans > 60 (> 60); eGFR For Non-African Americans > 60 (> 60)
[2019-06-19] MEDS: Nicotine 14 MG PATCH.TD24 TD SCH (22:18)
[2019-06-20 02:07] LABS: Basophils % 0.4 %; Eosinophils # 0.1 K/mcL (0.0-0.6); Hematocrit 35.1 % (37.5-50.1); Immature Granulocytes % 0.4 % (0-4); Lymphocytes # 1.2 K/mcL (0.6-4.6); Lymphocytes % 21.6 %; Mean Corpuscular HGB Conc 34.2 g/dL (31.6-35.5); Mean Corpuscular Hemoglobin 31.3 pg (28.0-33.3); Mean Corpuscular Volume 91.6 fL (83.0-100.0); Mean Platelet Volume 8.3 fL (9.4-12.4); Monocytes # 0.8 K/mcL (0.0-1.3); Monocytes % 14.5 %; Neutrophils # 3.4 K/mcL (1.6-8.9); Platelet Count 235 K/mcL (140-400); Red Blood Count 3.83 M/mcL (4.19-5.50); Red Cell Distribution Width 13.2 % (11.5-14.5); Segmented Neutrophils % 61.1 %; White Blood Count 5.5 K/mcL (4.3-11.1)
[2019-06-20 02:25] LABS: BUN/Creatinine Ratio 21 (6-26); Blood Urea Nitrogen 16 mg/dL (6-20); Calcium 9.4 mg/dL (8.6-10.3); Carbon Dioxide 26 mEq/L (23-29); Chloride 99 mEq/L (98-107); Glucose 115 mg/dL (70-105); Osmolality,Calculated 274 (280-300); Potassium 4.2 mEq/L (3.5-5.1); Sodium 131 mEq/L (136-145); eGFR For African Americans > 60 (> 60); eGFR For Non-African Americans > 60 (> 60)
[2019-06-20] MEDS: *HR* Enoxaparin 40 MG/0.4 ML SYRINGE SQ SCH (06:06)
[2019-06-20 07:11] VITALS: BP 104/84
[2019-06-20] MEDS: Nicotine 14 MG PATCH.TD24 TD SCH (08:15)
[2019-06-20] MEDS: Folic Acid 1 MG TABLET PO SCH (08:16)
[2019-06-20] MEDS: Thiamine (B-1) 100 MG TABLET PO SCH (08:16)
[2019-06-20] MEDS: amLODIPine 5 MG TABLET PO SCH (08:16)
[2019-06-20] MEDS: FLUoxetine 20 MG CAPSULE PO SCH (08:17)
[2019-06-20 09:00] LABS: Hematocrit 37.8 % (37.5-50.1); Hemoglobin 12.8 g/dL (12.9-16.9)
[2019-06-20 09:49] LABS: Albumin 4.5 g/dL (3.5-5.7); Bilirubin,Direct 0.1 mg/dL (0.0-0.2); Bilirubin,Indirect 0.7 mg/dL (0.0-1.0); Bilirubin,Total 0.8 mg/dL (0.3-1.0); Globulin 2.3 g/dL (2.4-3.5); Total Protein 6.8 g/dL (6.4-8.9)
== END 2019-06-20 14:58 | disposition home or self-care (01) ==
LOC: 2NENU 16:19 → EMEROOARM 16:19 → SUATTDRO 20:12 → OBSVTOIN 20:12 → 2NENU 20:54
PROVIDERS: ADMIT Family Medicine; ATTEND Internal Medicine

== ENCOUNTER 2019-07-29 18:17 | Observation (INO) ==
[2019-07-29] MEDS ORDERED: Thiamine (B-1) 100 MG, Folic Acid 1 MG, MVI, adult with vitamin K 10 ML in 0.9 % Sodi... IVPB ONE (18:45)
[2019-07-29 18:56] LABS: Mean Platelet Volume 8.4 fL (9.4-12.4); Red Cell Distribution Width 12.8 % (11.5-14.5)
[2019-07-29 18:58] LABS: Basophils % 0.5 %; Eosinophils # 0.1 K/mcL (0.0-0.6); Eosinophils % 0.9 %; Hematocrit 40.3 % (37.5-50.1); Immature Granulocytes % 0.5 % (0-4); Lymphocytes % 25.2 %; Mean Corpuscular HGB Conc 34.7 g/dL (31.6-35.5); Mean Corpuscular Volume 89.2 fL (83.0-100.0); Monocytes # 0.7 K/mcL (0.0-1.3); Monocytes % 8.2 %; Neutrophils # 5.2 K/mcL (1.6-8.9); Platelet Count 381 K/mcL (140-400); Red Blood Count 4.52 M/mcL (4.19-5.50); Segmented Neutrophils % 64.7 %; White Blood Count 8.1 K/mcL (4.3-11.1)
[2019-07-29 19:08] LABS: Acetaminophen < 10 mcg/mL (10-20); Alanine Aminotransferase 124 Units/L (7-52); Albumin 4.8 g/dL (3.5-5.7); Albumin/Globulin Ratio 1.8 (1.1-2.2); Alkaline Phosphatase 135 Units/L (34-104); Aspartate Amino Transferase 110 Units/L (13-39); BUN/Creatinine Ratio 7 (6-26); Bilirubin,Direct 0.2 mg/dL (0.0-0.2); Bilirubin,Indirect 0.8 mg/dL (0.0-1.0); Blood Urea Nitrogen 5 mg/dL (6-20); Calcium 9.4 mg/dL (8.6-10.3); Carbon Dioxide 20 mEq/L (23-29); Chloride 91 mEq/L (98-107); Ethanol 278 mg/dL (Less than 10); Globulin 2.6 g/dL (2.4-3.5); Glucose 79 mg/dL (70-105); Magnesium 1.7 mg/dL (1.6-2.6); Osmolality,Calculated 262 (280-300); Potassium 4.2 mEq/L (3.5-5.1); Salicylate < 2.5 mg/dL (15.0-30.0); Sodium 128 mEq/L (136-145); Total Protein 7.4 g/dL (6.4-8.9); eGFR For African Americans > 60 (> 60); eGFR For Non-African Americans > 60 (> 60)
[2019-07-29 19:53] LABS: Amphetamine Screen,Urine Negative ng/mL (Cutoff=1000); Barbiturate Screen,Urine Negative ng/mL (Cutoff=200); Benzodiazepines Screen,Urine Negative ng/mL (Cutoff=200); Cannabinoid Screen,Urine Negative ng/mL (Cutoff = 50); Cocaine Screen,Urine Negative ng/mL (Cutoff= 300); Opiate Screen,Urine Negative ng/mL (Cutoff=300); Phencyclidine Screen,Urine Negative ng/mL (Cutoff=25)
[2019-07-29] MEDS ORDERED: *HR* LORazepam 2 MG/ML VIAL IVP PRN ×3 (20:08)
[2019-07-29] MEDS ORDERED: Naloxone 0.4 MG/ML INJ IVP PRN (20:08)
[2019-07-29] MEDS: 0.9 % Sodium Chloride 1,000 ML IVC SCH (22:14)
[2019-07-29 22:55] LABS: Bilirubin,Urine Negative (Negative); Blood,Urine Negative (Negative); Clarity,Urine Clear (Clear); Color,Urine Yellow (Yellow); Glucose,Urine (UA) Normal (Normal); Ketones,Urine 40 mg/dL (Negative); Leukocyte Esterase,Urine Negative (Negative); Nitrite,Urine Negative (Negative); PH,Urine 6.5 pH Units (5.0-8.0); Protein,Urine Negative (Neg-Trace); Urobilinogen,Urine Normal (Normal)
[2019-07-29 23:01] LABS: Sodium, Urine 17.9 mEq/L
[2019-07-29] MEDS ORDERED: *HR* LORazepam 2 MG/ML VIAL IVP ONE (23:06)
[2019-07-29] MEDS: traZODone 50 MG TABLET PO PRN (23:57)
[2019-07-30 02:14] LABS: Basophils % 0.3 %; Eosinophils # 0.2 K/mcL (0.0-0.6); Hemoglobin 12.7 g/dL (12.9-16.9); Immature Granulocytes % 0.3 % (0-4); Lymphocytes # 1.6 K/mcL (0.6-4.6); Lymphocytes % 26.4 %; Mean Corpuscular HGB Conc 34.3 g/dL (31.6-35.5); Mean Corpuscular Volume 90.2 fL (83.0-100.0); Monocytes # 0.6 K/mcL (0.0-1.3); Monocytes % 10.3 %; Neutrophils # 3.5 K/mcL (1.6-8.9); Platelet Count 307 K/mcL (140-400); Red Cell Distribution Width 13.2 % (11.5-14.5); Segmented Neutrophils % 59.7 %; White Blood Count 5.9 K/mcL (4.3-11.1)
[2019-07-30 02:21] LABS: Prothrombin Time 10.8 Seconds (9.4-12.1)
[2019-07-30 02:37] LABS: Alanine Aminotransferase 102 Units/L (7-52); Albumin 4.1 g/dL (3.5-5.7); Albumin/Globulin Ratio 1.9 (1.1-2.2); Alkaline Phosphatase 116 Units/L (34-104); Aspartate Amino Transferase 88 Units/L (13-39); BUN/Creatinine Ratio 6 (6-26); Bilirubin,Total 1.2 mg/dL (0.3-1.0); Blood Urea Nitrogen 4 mg/dL (6-20); Calcium 8.8 mg/dL (8.6-10.3); Carbon Dioxide 23 mEq/L (23-29); Chloride 96 mEq/L (98-107); Ethanol 113 mg/dL (Less than 10); Globulin 2.2 g/dL (2.4-3.5); Glucose 96 mg/dL (70-105); Lipase 20 Units/L (11-82); Magnesium 1.8 mg/dL (1.6-2.6); Osmolality,Calculated 269 (280-300); Phosphorous 3.3 mg/dL (2.7-4.5); Sodium 131 mEq/L (136-145); Total Protein 6.3 g/dL (6.4-8.9); eGFR For African Americans > 60 (> 60); eGFR For Non-African Americans > 60 (> 60)
[2019-07-30] MEDS: 0.9 % Sodium Chloride 1,000 ML IVC SCH (05:42)
[2019-07-30] MEDS: Vitamin B Complex/Vit C/Vit E 1 EACH TABLET PO SCH (09:16)
[2019-07-30] MEDS: Thiamine (B-1) 100 MG TABLET PO SCH (09:16)
[2019-07-30] MEDS: amLODIPine 5 MG TABLET PO SCH (09:16)
[2019-07-30] MEDS: Folic Acid 1 MG TABLET PO SCH (09:16)
[2019-07-30] MEDS ORDERED: Ibuprofen 600 MG TABLET PO PRN (17:42)
[2019-07-30] MEDS: *HR* Heparin 5,000 UNIT/ML VIAL SQ SCH (21:35)
[2019-07-30] MEDS: traZODone 50 MG TABLET PO PRN (21:35)
[2019-07-31 05:35] LABS: Alanine Aminotransferase 92 Units/L (7-52); Albumin/Globulin Ratio 1.9 (1.1-2.2); Alkaline Phosphatase 110 Units/L (34-104); Aspartate Amino Transferase 63 Units/L (13-39); BUN/Creatinine Ratio 15 (6-26); Bilirubin,Total 1.4 mg/dL (0.3-1.0); Blood Urea Nitrogen 12 mg/dL (6-20); Calcium 9.4 mg/dL (8.6-10.3); Carbon Dioxide 26 mEq/L (23-29); Chloride 103 mEq/L (98-107); Globulin 2.1 g/dL (2.4-3.5); Glucose 114 mg/dL (70-105); Osmolality,Calculated 285 (280-300); Sodium 137 mEq/L (136-145); Total Protein 6.1 g/dL (6.4-8.9); eGFR For African Americans > 60 (> 60); eGFR For Non-African Americans > 60 (> 60)
[2019-07-31] MEDS: *HR* Heparin 5,000 UNIT/ML VIAL SQ SCH ×2 (05:50→17:42)
[2019-07-31] MEDS: Folic Acid 1 MG TABLET PO SCH (08:51)
[2019-07-31] MEDS: Thiamine (B-1) 100 MG TABLET PO SCH (08:51)
[2019-07-31] MEDS: Vitamin B Complex/Vit C/Vit E 1 EACH TABLET PO SCH (08:51)
[2019-07-31] MEDS: amLODIPine 5 MG TABLET PO SCH (08:51)
[2019-07-31] MEDS ORDERED: *HR* LORazepam 1 MG TABLET PO ONE (10:26)
[2019-07-31] MEDS: traZODone 50 MG TABLET PO PRN (22:54)
[2019-08-01 02:41] LABS: Albumin/Globulin Ratio 1.9 (1.1-2.2); Bilirubin,Direct 0.1 mg/dL (0.0-0.2); Bilirubin,Indirect 0.4 mg/dL (0.0-1.0); Bilirubin,Total 0.5 mg/dL (0.3-1.0); Globulin 2.1 g/dL (2.4-3.5); Total Protein 6.1 g/dL (6.4-8.9)
[2019-08-01] MEDS: *HR* Heparin 5,000 UNIT/ML VIAL SQ SCH (06:12)
[2019-08-01 06:41] VITALS: BP 134/99
[2019-08-01] MEDS: amLODIPine 5 MG TABLET PO SCH (07:53)
[2019-08-01] MEDS: Thiamine (B-1) 100 MG TABLET PO SCH (07:53)
[2019-08-01] MEDS: Vitamin B Complex/Vit C/Vit E 1 EACH TABLET PO SCH (07:53)
[2019-08-01] MEDS: Folic Acid 1 MG TABLET PO SCH (07:53)
== END 2019-08-01 12:11 | disposition home or self-care (01) ==
LOC: EMEROOARM 18:17 → 3BNU 18:17
PROVIDERS: ADMIT Internal Medicine; ATTEND Internal Medicine

== ENCOUNTER 2019-10-15 11:27 | Observation (INO) ==
[2019-10-15 12:11] LABS: Basophils % 0.5 %; Eosinophils # 0.1 K/mcL (0.0-0.6); Eosinophils % 1.4 %; Hematocrit 40.6 % (37.5-50.1); Hemoglobin 13.7 g/dL (12.9-16.9); Immature Granulocytes % 0.8 % (0-4); Lymphocytes # 0.6 K/mcL (0.6-4.6); Lymphocytes % 15.7 %; Mean Corpuscular HGB Conc 33.7 g/dL (31.6-35.5); Mean Corpuscular Hemoglobin 31.5 pg (28.0-33.3); Mean Corpuscular Volume 93.3 fL (83.0-100.0); Mean Platelet Volume 8.3 fL (9.4-12.4); Monocytes # 0.4 K/mcL (0.0-1.3); Monocytes % 9.5 %; Neutrophils # 2.7 K/mcL (1.6-8.9); Platelet Count 155 K/mcL (140-400); Red Blood Count 4.35 M/mcL (4.19-5.50); Red Cell Distribution Width 13.8 % (11.5-14.5); Segmented Neutrophils % 72.1 %; White Blood Count 3.7 K/mcL (4.3-11.1)
[2019-10-15 12:20] LABS: Bilirubin,Urine Negative (Negative); Blood,Urine Negative (Negative); Clarity,Urine Clear (Clear); Color,Urine Light-Yellow (Yellow); Glucose,Urine (UA) Normal (Normal); Ketones,Urine 20 mg/dL (Negative); Leukocyte Esterase,Urine Negative (Negative); Nitrite,Urine Negative (Negative); Protein,Urine Trace mg/dL (Neg-Trace); Urobilinogen,Urine Normal (Normal)
[2019-10-15 12:32] LABS: Acetaminophen < 10 mcg/mL (10-20); Alanine Aminotransferase 291 Units/L (7-52); Albumin 4.9 g/dL (3.5-5.7); Alkaline Phosphatase 69 Units/L (34-104); Aspartate Amino Transferase 371 Units/L (13-39); BUN/Creatinine Ratio 5 (6-26); Bilirubin,Direct 0.3 mg/dL (0.0-0.2); Bilirubin,Indirect 0.9 mg/dL (0.0-1.0); Bilirubin,Total 1.2 mg/dL (0.3-1.0); Blood Urea Nitrogen 5 mg/dL (6-20); Calcium 9.5 mg/dL (8.6-10.3); Carbon Dioxide 23 mEq/L (23-29); Chloride 91 mEq/L (98-107); Ethanol 81 mg/dL (Less than 10); Globulin 2.5 g/dL (2.4-3.5); Glucose 91 mg/dL (70-105); Osmolality,Calculated 263 (280-300); Potassium 4.3 mEq/L (3.5-5.1); Salicylate < 2.5 mg/dL (15.0-30.0); Sodium 128 mEq/L (136-145); Total Protein 7.4 g/dL (6.4-8.9); eGFR For African Americans > 60 (> 60); eGFR For Non-African Americans > 60 (> 60)
[2019-10-15 12:32] LABS: Amphetamine Screen,Urine Negative ng/mL (Cutoff=1000); Barbiturate Screen,Urine Negative ng/mL (Cutoff=200); Benzodiazepines Screen,Urine Positive ng/mL (Cutoff=200); Cannabinoid Screen,Urine Negative ng/mL (Cutoff = 50); Cocaine Screen,Urine Negative ng/mL (Cutoff= 300); Opiate Screen,Urine Negative ng/mL (Cutoff=300); Phencyclidine Screen,Urine Negative ng/mL (Cutoff=25)
[2019-10-15] MEDS ORDERED: Ibuprofen 600 MG TABLET PO ONE (12:45)
[2019-10-15] MEDS ORDERED: 0.9 % Sodium Chloride 1,000 ML IVC ONE (12:50)
[2019-10-15] MEDS ORDERED: Naloxone 0.4 MG/ML INJ IVP PRN (13:11)
[2019-10-15] MEDS ORDERED: Ondansetron 4 MG/2 ML VIAL IVP PRN (13:11)
[2019-10-15] MEDS ORDERED: *HR* LORazepam 2 MG/ML VIAL IVP PRN ×3 (13:12)
[2019-10-15] MEDS ORDERED: *HR* Labetalol 20 MG/4 ML SYRINGE IVP PRN (14:52)
[2019-10-15] MEDS: 0.9 % Sodium Chloride 1,000 ML IVC SCH (16:02)
[2019-10-16] MEDS ORDERED: Melatonin 3 MG TABLET PO ONE (00:55)
[2019-10-16 04:19] LABS: Basophils % 0.3 %; Eosinophils # 0.1 K/mcL (0.0-0.6); Eosinophils % 3.5 %; Hematocrit 39.1 % (37.5-50.1); Hemoglobin 12.9 g/dL (12.9-16.9); Lymphocytes # 0.8 K/mcL (0.6-4.6); Lymphocytes % 26.4 %; Mean Corpuscular Hemoglobin 31.4 pg (28.0-33.3); Mean Corpuscular Volume 95.1 fL (83.0-100.0); Mean Platelet Volume 8.7 fL (9.4-12.4); Monocytes # 0.4 K/mcL (0.0-1.3); Monocytes % 12.7 %; Neutrophils # 1.7 K/mcL (1.6-8.9); Platelet Count 146 K/mcL (140-400); Red Blood Count 4.11 M/mcL (4.19-5.50); Red Cell Distribution Width 14.2 % (11.5-14.5); Segmented Neutrophils % 56.1 %; White Blood Count 3.1 K/mcL (4.3-11.1)
[2019-10-16 04:31] LABS: Alanine Aminotransferase 195 Units/L (7-52); Albumin 4.4 g/dL (3.5-5.7); Albumin/Globulin Ratio 2.1 (1.1-2.2); Alkaline Phosphatase 61 Units/L (34-104); Aspartate Amino Transferase 161 Units/L (13-39); BUN/Creatinine Ratio 11 (6-26); Bilirubin,Total 1.8 mg/dL (0.3-1.0); Blood Urea Nitrogen 9 mg/dL (6-20); Calcium 9.5 mg/dL (8.6-10.3); Carbon Dioxide 23 mEq/L (23-29); Chloride 98 mEq/L (98-107); Globulin 2.1 g/dL (2.4-3.5); Glucose 98 mg/dL (70-105); Magnesium 1.7 mg/dL (1.6-2.6); Osmolality,Calculated 273 (280-300); Phosphorous 3.5 mg/dL (2.7-4.5); Potassium 4.1 mEq/L (3.5-5.1); Sodium 132 mEq/L (136-145); Total Protein 6.5 g/dL (6.4-8.9); eGFR For African Americans > 60 (> 60); eGFR For Non-African Americans > 60 (> 60)
[2019-10-16] MEDS: Ciprofloxacin HCL Soln 5 ML BOTTLE LEFT EYE SCH ×5 (05:14→21:25)
[2019-10-16] MEDS: 0.9 % Sodium Chloride 1,000 ML IVC SCH (05:15)
[2019-10-16] MEDS: Folic Acid 1 MG TABLET PO SCH (08:20)
[2019-10-16] MEDS: Thiamine (B-1) 100 MG TABLET PO SCH (08:20)
[2019-10-16] MEDS ORDERED: Acetaminophen 325 MG TABLET PO PRN (16:37)
[2019-10-17] MEDS: Ciprofloxacin HCL Soln 5 ML BOTTLE LEFT EYE SCH ×4 (00:10→12:06)
[2019-10-17] MEDS: Thiamine (B-1) 100 MG TABLET PO SCH (08:26)
[2019-10-17] MEDS: Folic Acid 1 MG TABLET PO SCH (08:26)
[2019-10-17 11:50] VITALS: BP 159/105
[2019-10-17] MEDS ORDERED: amLODIPine 5 MG TABLET PO SCH (13:00)
== END 2019-10-17 15:37 | disposition home or self-care (01) ==
LOC: 2ANU 11:27 → EMEROOARM 11:27 → 2ANU 14:49
PROVIDERS: ADMIT Internal Medicine; ATTEND Internal Medicine

== ENCOUNTER 2020-04-22 20:09 | Observation (INO) ==
[2020-04-22] MEDS ORDERED: Naloxone 0.4 MG/ML INJ IVP PRN (23:55)
[2020-04-22] MEDS ORDERED: Ibuprofen 400 MG TABLET PO PRN (23:55)
[2020-04-22] MEDS ORDERED: Ondansetron ODT 4 MG TAB.RAPDIS SL PRN (23:55)
[2020-04-22] MEDS ORDERED: *HR* LORazepam 2 MG/ML VIAL IVP PRN ×2 (23:58)
[2020-04-23] MEDS: *HR* LORazepam 2 MG/ML VIAL IVP PRN ×2 (00:42→04:38)
[2020-04-23 01:03] LABS: Basophils % 0.3 %; Eosinophils % 0.6 %; Hemoglobin 12.6 g/dL (12.9-16.9); Immature Granulocytes % 0.4 % (0-4); Mean Corpuscular Volume 88.5 fL (83.0-100.0); Monocytes # 0.8 K/mcL (0.0-1.3); Monocytes % 11.1 %; Neutrophils # 5.3 K/mcL (1.6-8.9); Platelet Count 186 K/mcL (140-400); Red Blood Count 4.07 M/mcL (4.19-5.50); Red Cell Distribution Width 13.2 % (11.5-14.5); Segmented Neutrophils % 73.6 %; White Blood Count 7.2 K/mcL (4.3-11.1)
[2020-04-23 01:25] LABS: BUN/Creatinine Ratio 13 (6-26); Blood Urea Nitrogen 8 mg/dL (6-20); Calcium 9.2 mg/dL (8.6-10.3); Carbon Dioxide 24 mEq/L (23-29); Chloride 89 mEq/L (98-107); Glucose 121 mg/dL (70-105); Magnesium 1.8 mg/dL (1.6-2.6); Osmolality,Calculated 258 (280-300); Potassium 4.3 mEq/L (3.5-5.1); Sodium 124 mEq/L (136-145); eGFR For African Americans > 60 (> 60); eGFR For Non-African Americans > 60 (> 60)
[2020-04-23] MEDS ORDERED: Melatonin 3 MG TABLET PO PRN (01:53)
[2020-04-23] MEDS ORDERED: *HR* Labetalol 20 MG/4 ML SYRINGE IVP PRN (02:40)
[2020-04-23 03:22] LABS: Bilirubin,Urine Negative (Negative); Blood,Urine Negative (Negative); Clarity,Urine Clear (Clear); Color,Urine Light-Yellow (Yellow); Glucose,Urine (UA) Normal (Normal); Ketones,Urine Negative (Negative); Leukocyte Esterase,Urine Negative (Negative); Nitrite,Urine Negative (Negative); PH,Urine 6.5 pH Units (5.0-8.0); Protein,Urine Negative (Neg-Trace); Specific Gravity,Urine 1.006 (1.010-1.025); Urobilinogen,Urine Normal (Normal)
[2020-04-23 06:20] LABS: BUN/Creatinine Ratio 13 (6-26); Blood Urea Nitrogen 7 mg/dL (6-20); Calcium 8.9 mg/dL (8.6-10.3); Carbon Dioxide 22 mEq/L (23-29); Chloride 91 mEq/L (98-107); Glucose 118 mg/dL (70-105); Osmolality,Calculated 253 (280-300); Potassium 4.5 mEq/L (3.5-5.1); Sodium 122 mEq/L (136-145); eGFR For African Americans > 60 (> 60); eGFR For Non-African Americans > 60 (> 60)
[2020-04-23] MEDS ORDERED: Metoprolol XL (24 HR) Succ 25 MG TAB.ER.24H PO SCH (09:00)
[2020-04-23] MEDS ORDERED: Thiamine (B-1) 100 MG, Folic Acid 1 MG, MVI, adult with vitamin K 10 ML in 0.9 % Sodi... IVPB SCH (12:00)
[2020-04-23] MEDS ORDERED: Perflutren Lipid Microsphere 1.3 ML in 0.9 % Sodium Chloride 8.7 ML IVP PRN (12:11)
[2020-04-23] MEDS ORDERED: 0.9 % Sodium Chloride 1,000 ML IVC SCH (12:15)
[2020-04-23] MEDS ORDERED: Thiamine (B-1) 100 MG TABLET PO SCH (12:15)
[2020-04-23 13:46] LABS: Amphetamine Screen,Urine Negative ng/mL (Cutoff=1000); Barbiturate Screen,Urine Negative ng/mL (Cutoff=200); Benzodiazepines Screen,Urine Negative ng/mL (Cutoff=200); Cannabinoid Screen,Urine Negative ng/mL (Cutoff = 50); Cocaine Screen,Urine Negative ng/mL (Cutoff= 300); Opiate Screen,Urine Negative ng/mL (Cutoff=300); Phencyclidine Screen,Urine Negative ng/mL (Cutoff=25)
[2020-04-23] MEDS ORDERED: traZODone 50 MG TABLET PO PRN (15:56)
[2020-04-23 16:15] LABS: Ethanol < 10 mg/dL (Less than 10); Sodium 125 mEq/L (136-145)
[2020-04-23] MEDS: *HR* Heparin 5,000 UNIT/ML VIAL SQ SCH (17:47)
[2020-04-23] MEDS ORDERED: levETIRAcetam 250 MG TABLET PO SCH (21:00)
[2020-04-24 05:34] LABS: Basophils % 0.4 %; Eosinophils # 0.1 K/mcL (0.0-0.6); Eosinophils % 2.4 %; Hematocrit 36.9 % (37.5-50.1); Hemoglobin 12.9 g/dL (12.9-16.9); Immature Granulocytes % 0.6 % (0-4); Lymphocytes # 1.3 K/mcL (0.6-4.6); Mean Corpuscular Hemoglobin 31.7 pg (28.0-33.3); Mean Corpuscular Volume 90.7 fL (83.0-100.0); Mean Platelet Volume 8.5 fL (9.4-12.4); Monocytes # 0.7 K/mcL (0.0-1.3); Monocytes % 12.8 %; Platelet Count 174 K/mcL (140-400); Red Blood Count 4.07 M/mcL (4.19-5.50); Red Cell Distribution Width 13.3 % (11.5-14.5); Segmented Neutrophils % 58.8 %; White Blood Count 5.1 K/mcL (4.3-11.1)
[2020-04-24 05:53] LABS: BUN/Creatinine Ratio 13 (6-26); Blood Urea Nitrogen 9 mg/dL (6-20); Calcium 8.9 mg/dL (8.6-10.3); Carbon Dioxide 22 mEq/L (23-29); Chloride 96 mEq/L (98-107); Glucose 107 mg/dL (70-105); Osmolality,Calculated 263 (280-300); Phosphorous 3.9 mg/dL (2.7-4.5); Potassium 4.1 mEq/L (3.5-5.1); Sodium 127 mEq/L (136-145); eGFR For African Americans > 60 (> 60); eGFR For Non-African Americans > 60 (> 60)
[2020-04-24] MEDS: *HR* Heparin 5,000 UNIT/ML VIAL SQ SCH (06:25)
[2020-04-24 06:53] VITALS: BP 155/90
[2020-04-24] MEDS ORDERED: NON-FORMULARY MEDICATION 1 EACH EACH (Duloxetine Hcl [Cymbalta] 60 MG) PO SCH (09:00)
[2020-04-24] MEDS ORDERED: Folic Acid 1 MG TABLET PO SCH (09:00)
[2020-04-24] MEDS ORDERED: amLODIPine 5 MG TABLET PO SCH (09:00)
[2020-04-24] MEDS ORDERED: ARIPiprazole 5 MG TABLET PO SCH (09:00)
== END 2020-04-24 14:23 | disposition home or self-care (01) ==
LOC: 2NNU → SUATTDRO 22:55 → 3BNU 04-23 22:18
PROVIDERS: ADMIT Internal Medicine; ATTEND Internal Medicine

== ENCOUNTER 2022-01-27 17:05 | Observation (INO) ==
[2022-01-27] MEDS ORDERED: Ondansetron 4 MG/2 ML VIAL IVP ONE (19:18)
[2022-01-27 19:43] LABS: Basophils % 0.2 %; Eosinophils % 0.1 %; Hematocrit 39.4 % (37.5-50.1); Hemoglobin 13.6 g/dL (12.9-16.9); Immature Granulocytes % 0.6 % (0-4); Lymphocytes # 2.3 K/mcL (0.6-4.6); Lymphocytes % 14.4 %; Mean Corpuscular HGB Conc 34.5 g/dL (31.6-35.5); Mean Corpuscular Hemoglobin 29.9 pg (28.0-33.3); Mean Corpuscular Volume 86.6 fL (83.0-100.0); Mean Platelet Volume 8.6 fL (9.4-12.4); Monocytes # 0.9 K/mcL (0.0-1.3); Monocytes % 5.5 %; Neutrophils # 12.8 K/mcL (1.6-8.9); Platelet Count 295 K/mcL (140-400); Red Blood Count 4.55 M/mcL (4.19-5.50); Red Cell Distribution Width 12.3 % (11.5-14.5); Segmented Neutrophils % 79.2 %; White Blood Count 16.1 K/mcL (4.3-11.1)
[2022-01-27 20:30] LABS: Thyroid Stimulating Hormone 1.668 mcIU/mL (0.340-5.600)
[2022-01-27 21:03] LABS: Alanine Aminotransferase 14 Units/L (7-52); Albumin 4.6 g/dL (3.5-5.7); Albumin/Globulin Ratio 1.8 (1.1-2.2); Alkaline Phosphatase 71 Units/L (34-104); Aspartate Amino Transferase 21 Units/L (13-39); BUN/Creatinine Ratio 9 (6-26); Blood Urea Nitrogen 7 mg/dL (6-20); Calcium 9.2 mg/dL (8.6-10.3); Carbon Dioxide 17 mEq/L (23-29); Chloride 90 mEq/L (98-107); Ethanol 195 mg/dL (Less than 10); Globulin 2.6 g/dL (2.4-3.5); Glucose 94 mg/dL (70-105); Magnesium 1.6 mg/dL (1.6-2.6); Osmolality,Calculated 262 (280-300); Potassium 4.2 mEq/L (3.5-5.1); Sodium 127 mEq/L (136-145); Total Protein 7.2 g/dL (6.4-8.9)
[2022-01-27 21:58] LABS: Amphetamine Screen,Urine Negative ng/mL (Cutoff=1000); Barbiturate Screen,Urine Negative ng/mL (Cutoff=200); Benzodiazepines Screen,Urine Negative ng/mL (Cutoff=300); Cannabinoid Screen,Urine Negative ng/mL (Cutoff = 50); Cocaine Screen,Urine Negative ng/mL (Cutoff= 300); Opiate Screen,Urine Negative ng/mL (Cutoff=300); Phencyclidine Screen,Urine Negative ng/mL (Cutoff=25)
[2022-01-27] MEDS ORDERED: Ondansetron 4 MG/2 ML VIAL IVP PRN (22:02)
[2022-01-27] MEDS ORDERED: Naloxone 0.4 MG/ML INJ IVP PRN (22:02)
[2022-01-27] MEDS ORDERED: *HR* LORazepam 2 MG/ML VIAL IVP PRN ×3 (22:04)
[2022-01-28 00:01] LABS: Bilirubin,Urine Negative (Negative); Blood,Urine Negative (Negative); Clarity,Urine Clear (Clear); Color,Urine Colorless (Yellow); Glucose,Urine (UA) Normal (Normal); Ketones,Urine 40 mg/dL (Negative); Leukocyte Esterase,Urine Negative (Negative); Nitrite,Urine Negative (Negative); Protein,Urine Negative (Neg-Trace); Specific Gravity,Urine 1.008 (1.010-1.025); Urobilinogen,Urine Normal (Normal)
[2022-01-28 03:46] LABS: Basophils % 0.3 %; Eosinophils # 0.1 K/mcL (0.0-0.6); Eosinophils % 0.7 %; Hematocrit 37.4 % (37.5-50.1); Immature Granulocytes % 0.7 % (0-4); Lymphocytes # 1.5 K/mcL (0.6-4.6); Lymphocytes % 17.9 %; Mean Corpuscular HGB Conc 34.8 g/dL (31.6-35.5); Mean Corpuscular Hemoglobin 30.2 pg (28.0-33.3); Mean Platelet Volume 8.8 fL (9.4-12.4); Monocytes # 0.9 K/mcL (0.0-1.3); Monocytes % 10.7 %; Platelet Count 229 K/mcL (140-400); Red Cell Distribution Width 12.3 % (11.5-14.5); Segmented Neutrophils % 69.7 %; White Blood Count 8.6 K/mcL (4.3-11.1)
[2022-01-28 04:09] LABS: Albumin 4.4 g/dL (3.5-5.7); Albumin/Globulin Ratio 1.9 (1.1-2.2); Bilirubin,Direct 0.2 mg/dL (0.0-0.2); Bilirubin,Indirect 1.2 mg/dL (0.0-1.0); Bilirubin,Total 1.4 mg/dL (0.3-1.0); Globulin 2.3 g/dL (2.4-3.5); Total Protein 6.7 g/dL (6.4-8.9)
[2022-01-28 04:10] LABS: BUN/Creatinine Ratio 9 (6-26); Blood Urea Nitrogen 6 mg/dL (6-20); Calcium 9.5 mg/dL (8.6-10.3); Carbon Dioxide 20 mEq/L (23-29); Chloride 95 mEq/L (98-107); Glucose 73 mg/dL (70-105); Magnesium 1.7 mg/dL (1.6-2.6); Osmolality,Calculated 274 (280-300); Phosphorous 3.4 mg/dL (2.7-4.5); Potassium 4.3 mEq/L (3.5-5.1); Sodium 134 mEq/L (136-145)
[2022-01-28] MEDS: Naltrexone HCl 50 MG TABLET PO SCH (10:11)
[2022-01-28] MEDS ORDERED: Folic Acid 1 MG TABLET PO SCH (11:00)
[2022-01-28] MEDS ORDERED: Metoprolol XL (24 HR) Succ 25 MG TAB.ER.24H PO SCH (11:00)
[2022-01-28] MEDS: Thiamine (B-1) 100 MG TABLET PO SCH (14:57)
[2022-01-28] MEDS ORDERED: Thiamine (B-1) 100 MG, Folic Acid 1 MG, MVI, adult with vitamin K 10 ML in 0.9 % Sodi... IVPB SCH (18:00)
[2022-01-29 03:04] LABS: Basophils % 0.5 %; Eosinophils # 0.2 K/mcL (0.0-0.6); Eosinophils % 3.5 %; Hematocrit 41.8 % (37.5-50.1); Hemoglobin 13.8 g/dL (12.9-16.9); Immature Granulocytes % 1.1 % (0-4); Lymphocytes # 1.4 K/mcL (0.6-4.6); Lymphocytes % 22.9 %; Mean Corpuscular Volume 90.9 fL (83.0-100.0); Mean Platelet Volume 8.7 fL (9.4-12.4); Monocytes # 0.8 K/mcL (0.0-1.3); Monocytes % 13.1 %; Neutrophils # 3.7 K/mcL (1.6-8.9); Platelet Count 202 K/mcL (140-400); Red Cell Distribution Width 12.7 % (11.5-14.5); Segmented Neutrophils % 58.9 %; White Blood Count 6.2 K/mcL (4.3-11.1)
[2022-01-29 03:44] LABS: Alanine Aminotransferase 11 Units/L (7-52); Albumin 4.3 g/dL (3.5-5.7); Albumin/Globulin Ratio 1.7 (1.1-2.2); Alkaline Phosphatase 65 Units/L (34-104); Aspartate Amino Transferase 13 Units/L (13-39); BUN/Creatinine Ratio 10 (6-26); Bilirubin,Total 1.2 mg/dL (0.3-1.0); Blood Urea Nitrogen 8 mg/dL (6-20); Calcium 9.6 mg/dL (8.6-10.3); Carbon Dioxide 28 mEq/L (23-29); Chloride 100 mEq/L (98-107); Globulin 2.5 g/dL (2.4-3.5); Glucose 124 mg/dL (70-105); Magnesium 1.9 mg/dL (1.6-2.6); Osmolality,Calculated 282 (280-300); Phosphorous 3.6 mg/dL (2.7-4.5); Potassium 3.9 mEq/L (3.5-5.1); Sodium 136 mEq/L (136-145); Total Protein 6.8 g/dL (6.4-8.9)
[2022-01-29] MEDS: Thiamine (B-1) 100 MG TABLET PO SCH (08:02)
[2022-01-29] MEDS: Naltrexone HCl 50 MG TABLET PO SCH (08:02)
[2022-01-29] MEDS ORDERED: traZODone 50 MG TABLET PO PRN (08:04)
[2022-01-29] MEDS ORDERED: carvediloL 6.25 MG TABLET PO SCH (09:16)
[2022-01-29 14:38] VITALS: BP 140/106; PULSE 105; TEMP 97.4; O2SAT 95
== END 2022-01-29 15:33 | disposition home or self-care (01) ==
LOC: 3NENU 17:05 → EMEROOARM 17:05 → 3NENU 22:58
PROVIDERS: ADMIT Internal Medicine; ATTEND Internal Medicine